=== PATIENT | female | born 1945 | race Caucasian/White ===

== ENCOUNTER → 2019-06-21 | Outpatient (REF) ==
[~2019-06-21] MED LIST: CALC1TAB42 PO; COUM2.5T17 PO; FISH5CAP PO; LISI-538 PO; PERC5TAB12 PO; REDCAP9 PO; VITA500046 PO
== END ==
LOC: M LAB LCGH 14:47
PROVIDERS: ATTEND Nurse Practitioner Family
DX: D48.9 Neoplasm of uncertain behavior, unspecified (principal)

== ENCOUNTER → 2020-02-16 | Outpatient (CLI) | payer MEDICARE ==
--- NOTE | 2020-02-16 11:47 | REP ---
POSTBIOPSY MAMMOGRAM LEFT BREAST: MLO and CC views of the left breast performed following ultrasound guided biopsy of the nodule seen by prior mammogram and ultrasound at [facility] in the region of 8 -o'clock position left breast. A metallic clip is seen at the site of the biopsy corresponding to the site of the nodule on the mammogram of 01/12/2020.
[2020-02-16 13:09] VITALS: BP 150/82
--- NOTE | 2020-02-16 14:12 | REP ---
ULTRASOUND GUIDANCE FOR LEFT BREAST BIOPSY: Ultrasound guidance was provided for Dr. Thibodeaux who performed ultrasound-guided biopsy of a hypoechoic nodule in the region of 8-o'clock as seen on prior ultrasound at [facility] 01/24/2020. The nodule was also seen mammographically. Biopsy needle does appear to be within the hypoechoic nodule sonographically.
--- NOTE | 2020-02-27 13:57 | ROOPDOC ---
[facility] Report Of Operation Report of Operation DATE OF PROCEDURE: 02/16/20 PREPROCEDURE DIAGNOSES: Left breast mass POSTPROCEDURE DIAGNOSES: Left breast mass PROCEDURE: Ultrasound-guided left breast mass biopsy with clip placement SURGEON: Juan C Hidalgo ANESTHESIA: Local ESTIMATED BLOOD LOSS: Approximately 1 mL. COMPLICATIONS: No complications REMARKS: Postbiopsy clips seen on left breast mammogram at the appropriate location. Previously identified nodule on left breast mammogram is no longer visible. DESCRIPTION OF PROCEDURE: Lidocaine 1% LOT [id number] Expiration 12/2022 Sodium Bicarbonate 8.4% LOT [id number] Expiration 01/2021 Hydromark clip LOT [id number] Expiration 09/2022 SHAPE 4 Bx device: BARD [id number] x10 cm LOT [id number] Expiration 09/2022 Informed consent was obtained. The most common risk and possible complications including bleeding, hematoma, bruising, infection, injury to surrounding structures were explained to the patient and she expressed understanding. Patient was placed on the bed in the supine position. Appropriate time out was done stating patients name, date of , and the procedure to be performed. The left breast was prepped and draped in the usual fashion. The ultrasound was used to confirm the location of the lesion in the left breast at 8:00 2-3 centimeters from the nipple. Plain Lidocaine 1% and 8.4% sodium bicarbonate 10:1 mix was used to anesthetize the skin, the biopsy site and tissues along the anticipated biopsy tract. Small skin incision was made with blade number 11. BARD Marquee 14G cannula with introducer ([id number]) was inserted through the incision and advanced under the ultrasound guidance to position immediately adjacent to the lesion. Next, the introducer was removed and BARD Marquee 14G biopsy device was places in the cannula. Pre-biopsy imaging, and post-biopsy imaging were captured. Five good core biopsies were taken at various levels of the lesion. Specimen was placed in formaldehyde, labeled with appropriate biopsy site and patients name, and sent to pathology for evaluation. Next, the biopsy device was withdrawn and a clip introducer was inserted into the biopsy site via the cannula. The SHAPE 4 Hydromark clip was deployed under sonographic guidance. Post-clip placement image was captured. Manual pressure over the biopsy cavity and tract was held after the clip introducer was withdrawn. No bleeding was noted upon removal of the pressure. Post-biopsy mammogram of the left breast was obtained and showed clip in expected position. Previously identified left breast nodule was no longer visible at that position. Postprocedural dressing was placed. Patient tolerated procedure well. Discharge instructions were discussed with the patient and she expressed understanding. JUAN C HIDALGO DO Feb 27, 2020 13:51
== END ==
LOC: M WHCPRO 07:55
PROVIDERS: ATTEND Surgery
DX: N63.24 Unspecified lump in the left breast, lower inner quadrant (principal)

== ENCOUNTER → 2020-08-25 | Outpatient (CLI) | payer MEDICARE ==
[~2020-08-25] MED LIST changes: -LISI-538 PO; +LISI20TA33 PO
--- NOTE | 2020-08-25 12:44 | REP ---
INDICATION: N63.20 6 MO F/U LT BREAST NODULE,BENIGN BX; N63.20 6 MO F/U LT BREAST NODULE, BENIGN BX. COMPARISON: 08/18/2019 as well as other prior exams. TECHNIQUE: Left breast mammogram performed in the MLO and CC projections with tomosynthesis. Left breast ultrasound performed. FINDINGS: Fibroglandular pattern is unchanged. There is no new mass or clustered microcalcifications. Biopsy clip is seen medially and inferiorly in the left breast, status post prior benign ultrasound-guided biopsy at that location. Focused left breast ultrasound at the site of the ultrasound-guided biopsy demonstrates a biopsy clip with no mass or nodule. IMPRESSION: BIRADS/ACR category 2 benign. Stable post biopsy changes inferomedial left breast both mammographically and sonographically. No new mass or clustered microcalcifications. This mammogram was interpreted with the aid of an FDA-approved computer-aided detection system. The patient letter being requested is M 1. RECOMMENDATION: Recommend follow-up bilateral mammogram January 2021. <Electronically signed by Reynaldo Patel > 08/25/20 [id number]
== END ==
LOC: M WHC 08:51
PROVIDERS: ATTEND Surgery
DX: R92.8 Other abnormal and inconclusive findings on diagnostic imaging of breast (principal); N63.20 Unspecified lump in the left breast, unspecified quadrant
CPT/HCPCS: 76642; 77065; G0279

== ENCOUNTER → 2021-02-21 | Outpatient (CLI) | payer MEDICARE ==
[~2021-02-21] MED LIST changes: +CALTTAB6 PO; +VITA100T59 PO
[2021-02-21 10:16] VITALS: BP 152/86
--- NOTE | 2021-02-21 21:21 | ROOPDOC ---
[facility] Report Of Operation Report of Operation DATE OF PROCEDURE: 02/21/21 DIAGNOSIS: left breast suspicious lesion PROCEDURE: ultrasound guided biopsy of the left breast suspicious lesion with clip placement SURGEON: Juan C Hidalgo BLOOD LOSS: minimal COMPLICATIONS: none Lidocaine 1% LOT [id number] Expiration 09/2024 Sodium Bicarbonate 8.4% LOT [id number] Expiration 09/2021 Hydromark clip LOT [id number] Expiration 07/2023 SHAPE: 3 Bx device: Mammotome Elite LOT [id number] Expiration 05/2023 Informed consent was obtained. The most common risk and possible complications including bleeding, hematoma, bruising, infection, injury to surrounding structures were explained to the patient and the patient expressed unders tanding. Patient was placed on the bed in the supine position. Appropriate time out was done stating patients name, date of , and the procedure to be performed. The left breast was prepped and draped in the usual fashion. The ultrasound was used to confirm the location of the lesion in the left breast at 8:00 2 centimeters from the nipple with associated hydromark clip. Plain Lidocaine 1% and 8.4% sodium bicarbonate 10:1 mix was used to anesthetize the skin, the biopsy site and tissues along the anticipated biopsy tract. Small skin incision was made with blade number 11. Mammotome Elite biopsy device was inserted through the incision and advanced under the ultrasound guidance to position immediately under the lesion. Vacuum biopsy was used and five samples were obtained. It was noted that the target nodule and associated previously placed clip were no longer visible after the biopsy was completed. Specimen was placed in formaldehyde, labeled with appropriate biopsy site and patients name, and sent to pathology for evaluation. Next, the biopsy device was withdrawn and a clip introducer was inserted into the biopsy site. SHAPE 3 Hydromark clip was deployed under sonographic guidance. Post-clip placement image was captured. Manual pressure over the biopsy cavity and tract was held after the clip introducer was withdrawn. No bleeding was noted upon removal of the pressure. Post-biopsy mammogram of the left breast was obtained and showed clip in expected position. The previously seen left medial breast nodule is no longer visible. Postprocedural dressing was placed. Patient tolerated procedure well. Discharge instructions were discussed with the patient and the patient expressed understanding. JUAN C HIDALGO DO Feb 21, 2021 21:21
== END ==
LOC: M WHCPRO 06:56
PROVIDERS: ATTEND Surgery
DX: N63.24 Unspecified lump in the left breast, lower inner quadrant (principal)

== ENCOUNTER → 2021-08-27 | Outpatient (CLI) | payer MEDICARE | LOC: M WHC 08:51 | PROVIDERS: ATTEND Nurse Practitioner Women's Health | DX: R92.8 Other abnormal and inconclusive findings on diagnostic imaging of breast (principal) | CPT/HCPCS: 77065; G0279 ==

== ENCOUNTER → 2021-08-28 | Outpatient (CLI) | payer MEDICARE | LOC: M WHC 09:50 | PROVIDERS: ATTEND Nurse Practitioner Women's Health | DX: D24.2 Benign neoplasm of left breast (principal) ==